=== PATIENT | female | born 1995 | race Caucasian/White ===

== ENCOUNTER 2017-10-29 20:59 | Emergency (ER) | payer MEDICAID ==
[2017-10-29] MEDS ORDERED: ONDANSETRON 4 MG/2 ML VIAL IVP ONE (21:40)
[2017-10-29] MEDS ORDERED: ONDANSETRON 4MG PREPACK#2 BTL TAKEHOME ONE (21:50)
[2017-10-29] MEDS ORDERED: NS 1,000 ML IV ONE (21:50)
--- NOTE | 2017-10-29 21:50 | EDPHY ---
H & P Time Seen by Provider: 10/29/17 21:40 HPI/ROS: CHIEF COMPLAINT: Vomiting and diarrhea HISTORY OF PRESENT ILLNESS: 21-year-old female presents with vomiting and diarrhea. Onset of vomiting and diarrhea yesterday. Vomiting started yesterday , continues today. Tolerating oral fluids well, but not food. Multiple episodes of watery diarrhea. No associated abdominal pain fever or urinary symptoms. She has had intermittent vomiting throughout her , but not like this. REVIEW OF SYSTEMS: Constitutional: No fever, no chills Eyes: No visual changes ENT: No sore throat Respiratory: No cough, no shortness of breath Cardiac: No chest pain Genitourinary: no dysuria Musculoskeletal: No leg pain or swelling Skin: No rash Neurological: No headache, no weakness Psychiatric: No depression Past Medical/Surgical History: Denies Social History: Single Smoking Status: Never smoked Physical Exam: General Appearance: Alert, pleasant Eyes: Pupils equal and round, no conjunctival pallor ENT, Mouth: Mucous membranes slightly dry Neck: Normal inspection Respiratory: Lungs are clear to auscultation Cardiovascular: Regular rate and rhythm Gastrointestinal: Abdomen is soft and nontender Neurological: A&O, nonfocal exam Skin: Warm and dry, no rash Extremities: Normal inspection Psychiatric: Mood and affect normal Constitutional: Initial Vital Signs Temperature (C) 37 C 10/29/17 21:03 Heart Rate 91 10/29/17 21:03 Respiratory Rate 16 10/29/17 21:03 Blood Pressure 127/80 H 10/29/17 21:03 O2 Sat (%) 97 10/29/17 21:03 O2 Delivery Mode Room Air Allergies/Adverse Reactions: No Known Allergies Allergy (Unverified 10/29/17 21:07) Home Medications: Medication Instructions Recorded Metoclopramide [Reglan 10 mg tab 10 mg PO Q6 PRN #10 tab 10/29/17 (*)] 10/29/17 Medical Decision Making ED Course/Re-evaluation: This pt presents with N/V/D, c/w gastroenteritis. Abd soft and NT, no evidence of surgical abd. Doubt hyperemesis gravidarum, given diarrhea and EGA 13 wks. IV NS 1 liter and Zofran 4mg IV given. 10:30 p.m.-feels much better, nausea has resolved. Abd remains soft and NT. She now has a migraine headache, which she thinks is because of Zofran. Tylenol given with relief. Tolerates oral fluids well, will d/c home. Abd pain prec given. Differential Diagnosis: includes though not limited to appy, pyelonephritis, SBO, hyperemesis, cholecystitis - Data Points Medications Given: Discontinued Medications Acetaminophen (Tylenol) 650 mg PO EDNOW ONE Stop: 10/29/17 22:30 Last Admin: 10/29/17 22:45 Dose: 650 mg Sodium Chloride (Ns) 1,000 mls @ 0 mls/hr IV ONCE ONE; Wide Open PRN Reason: Protocol Stop: 10/29/17 21:51 Last Admin: 10/29/17 21:50 Dose: 1,000 mls Ondansetron HCl (Zofran) 4 mg IVP EDNOW ONE Stop: 10/29/17 21:41 Last Admin: 10/29/17 21:50 Dose: 4 mg Ondansetron HCl (Zofran Odt 4 Mg Prepack#2) 1 btl TAKEHOME EDNOW ONE Stop: 10/29/17 21:51 Last Admin: 10/29/17 22:45 Dose: 1 btl Departure - Departure Disposition: Home, Routine, Self-Care Clinical Impression: Acute gastroenteritis Condition: Good Instructions: Ondansetron (By mouth), Gastroenteritis (ED) Additional Instructions: 1. Clear liquids for 24 hours. 2. Advance diet as tolerated. I suggest the BRAT diet to start: bananas, rice, applesauce and toast. 3. Return for worsening symptoms, persistent vomiting, abdominal pain, any concerns. 4. Reglan as needed for nausea. Referrals: Yuliet North MD [Medical Doctor] - As per Instructions (Call to make an appointment. ) Prescriptions: Metoclopramide [Reglan 10 mg tab (*)] 10 mg PO Q6 PRN #10 tab PRN Reason: nausea
[2017-10-29] MEDS ORDERED: ACETAMINOPHEN 325 MG TAB PO ONE (22:29)
[2017-10-29 22:47] VITALS: BP 105/61
== END 2017-10-29 23:11 | disposition home or self-care (01) ==
DX: O99.611 Diseases of the digestive system complicating pregnancy, first trimester (principal); K52.9 Noninfective gastroenteritis and colitis, unspecified; E86.9 Volume depletion, unspecified; Z3A.13 13 weeks gestation of pregnancy
CPT/HCPCS: 96374; J2405